=== PATIENT | female | born 1995 | race Caucasian/White ===

== ENCOUNTER 2020-07-27 19:12 | Emergency (ER) | payer BC, OTHER ==
[~2020-07-27] VITALS: Ht 157.5 cm; Wt 62.0 kg
[2020-07-27 19:20] VITALS: BP 130/88
--- NOTE | 2020-07-27 19:59 | NUR ---
CC OF VB STARTING TODAY AND ABD X 5 DAYS. PT RECENTLY SEEN AT [facility] AND WAS TOLD SHE HAS OVARIAN CYST ON RIGHT SIDE. PT STATES SHE ENDED HER PERIOD LAST WEEK AND THIS BLEEDING IS "HEAVIER THEN THAT". DENIES ABD SURGERIES. SO AT BEDSIDE
[2020-07-27 20:20] LABS: BASOPHILS % (AUTO) 1 % (0-1); EOSINOPHILS % (AUTO) 2 % (1-7); LYMPHOCYTES % (AUTO) 20 % (22-44); MEAN CORPUSCULAR HEMOGLOBIN 22.2 pg (27.0-34.8); MEAN CORPUSCULAR HGB CONC 31.6 g/dL (32.4-35.8); MEAN PLATELET VOLUME 8.1 fL (7.4-10.4); MONOCYTES % (AUTO) 8 % (2-9); NEUTROPHILS % (AUTO) 69 % (42-75); PLATELET COUNT 351 x10^3/uL (130-400); RED BLOOD COUNT 4.21 x10^6/uL (3.82-5.3)
[2020-07-27] MEDS ORDERED: MORPHINE SULFATE 4 MG/ML, 1ML ONE (20:20)
[2020-07-27 20:21] LABS: MD NO
--- NOTE | 2020-07-27 20:25 | NUR ---
PT TO US
[2020-07-27] MEDS ORDERED: SODIUM CHLORIDE FLUSH 10ML SYR IVF ONE (20:30)
[2020-07-27] MEDS ORDERED: MORPHINE SULFATE 4 MG/ML, 1ML IVPush PRN ×2 (20:30)
[2020-07-27 20:32] LABS: ALANINE AMINOTRANSFERASE 14 U/L (12-78); ALBUMIN 3.6 g/dL (3.4-5.0); ANION GAP 4 mmol/L (5-15); CALCIUM 8.2 mg/dL (8.5-10.1); CHLORIDE 108 mmol/L (98-107); CREATININE 0.62 mg/dL (0.55-1.02)
[2020-07-27 20:37] LABS: ALKALINE PHOSPHATASE 51 U/L (45-117); BILIRUBIN,TOTAL 0.2 mg/dL (0.2-1.0)
[2020-07-27 20:42] LABS: MICROSCOPIC INDICATED
--- NOTE | 2020-07-27 21:12 | NUR ---
TASK RN: ALL RESULTS ARE BACK AT THIS TIME. CHART UP FOR RECHECK.
== END 2020-07-27 22:42 | disposition home or self-care (01) ==
LOC: ED 22:41
DX: N83.291 Other ovarian cyst, right side (principal); N93.8 Other specified abnormal uterine and vaginal bleeding; N92.1 Excessive and frequent menstruation with irregular cycle
CPT/HCPCS: 36415; 76830; 80053; 81001; 84703; 85025; 87086; 96374; 99284; J2270

== ENCOUNTER 2020-08-03 12:13 | Emergency (ER) | payer BC, OTHER ==
[~2020-08-03] VITALS: Ht 157.5 cm; Wt 61.4 kg
[2020-08-03] VITALS (7 sets, daily range): BP systolic 96–112; BP diastolic 45–66
[2020-08-03 12:53] LABS: BASOPHILS % (AUTO) 1 % (0-1); EOSINOPHILS % (AUTO) 1 % (1-7); LYMPHOCYTES % (AUTO) 10 % (22-44); MEAN CORPUSCULAR HGB CONC 31.7 g/dL (32.4-35.8); MEAN PLATELET VOLUME 8.2 fL (7.4-10.4); MONOCYTES % (AUTO) 7 % (2-9); NEUTROPHILS % (AUTO) 81 % (42-75); PLATELET COUNT 401 x10^3/uL (130-400); RED BLOOD COUNT 3.58 x10^6/uL (3.82-5.3); RED CELL DISTRIBUTION WIDTH 17.1 % (9.6-15.2)
[2020-08-03 13:05] LABS: ALBUMIN 3.1 g/dL (3.4-5.0); ANION GAP 6 mmol/L (5-15); CALCIUM 8.2 mg/dL (8.5-10.1); CHLORIDE 104 mmol/L (98-107)
[2020-08-03 13:11] LABS: ALANINE AMINOTRANSFERASE 13 U/L (12-78); ALKALINE PHOSPHATASE 62 U/L (45-117); BILIRUBIN,TOTAL 0.3 mg/dL (0.2-1.0); CREATININE 0.52 mg/dL (0.55-1.02); TOTAL PROTEIN 7.1 g/dL (6.4-8.2)
--- NOTE | 2020-08-03 16:34 | NUR ---
patient to room 33
--- NOTE | 2020-08-03 17:04 | NUR ---
MEDICAL STUDENT BEDSIDE
[2020-08-03] MEDS ORDERED: SODIUM CHLORIDE 0.9% 1,000ML IVBOLUS ONE (18:00)
[2020-08-03] MEDS ORDERED: ONDANSETRON 2MG/ML, 2ML IVPush ONE (18:00)
[2020-08-03] MEDS ORDERED: KETOROLAC 30 MG/1 ML IVPush ONE (18:00)
[2020-08-03] MEDS ORDERED: SODIUM CHLORIDE FLUSH 10ML SYR IVF ONE (18:00)
--- NOTE | 2020-08-03 18:14 | NUR ---
JOHANN ASSIST PELVIC EXAM WITH DR. BERNARD, PT TOLERATED WELL
[2020-08-03 18:43] LABS: CLUE CELLS NONE SEEN (NONE SEEN); WET PREP WBCS FEW (FEW)
[2020-08-03] MEDS ORDERED: MORPHINE SULFATE 4 MG/ML, 1ML ONE ×2 (18:50→22:13)
[2020-08-03] MEDS ORDERED: ONDANSETRON 2MG/ML, 2ML ONE (18:50)
[2020-08-03] MEDS ORDERED: KETOROLAC 30 MG/1 ML ONE (18:50)
[2020-08-03] MEDS: MORPHINE SULFATE 4 MG/ML, 1ML IVPush PRN ×2 (18:53→22:14)
--- NOTE | 2020-08-03 20:05 | NUR ---
task RN: attempted to obtain consent for blood transfusion on behalf of primary RN Annika. pt reports that she would like to speak to he doctor regading her blood transfusion prior to signing consent. pt reports that she has her own donor that she would like uilized and that she is not comfortable recieving a blood transfusion with anonymous donor blood. pt up to BR without dificuly. SO at bedside Dr. Patel notified
--- NOTE | 2020-08-03 20:45 | NUR ---
task RN: Dr. Patel has been to bedside for pt educaiton. pt now agrees to consent to transfusion. per Ok for pt to eat. report to primary RN Annika
--- NOTE | 2020-08-03 21:58 | NUR ---
task RN: blood slip sent to blood bank
--- NOTE | 2020-08-03 23:55 | NUR ---
PT C/O NAUSEA. MESSAGE LEFT FOR MD.
[2020-08-04] MEDS ORDERED: ONDANSETRON 2MG/ML, 2ML IVPush ONE
[2020-08-04] MEDS ORDERED: ONDANSETRON 2MG/ML, 2ML ONE (00:12)
[2020-08-04 00:20] VITALS: BP 115/55
[2020-08-04 00:53] VITALS: BP 110/64
--- NOTE | 2020-08-04 01:04 | NUR ---
PT REC'VD DISCHARGE EDUCATION AND INSTRUCTIONS. PT AND SPOUSE HAD NO FURTHER QUESTIONS. PT AMBULATED TO DC AREA, STEADY GAIT.
== END 2020-08-04 01:08 | disposition home or self-care (01) ==
LOC: ED 13:22
DX: N83.291 Other ovarian cyst, right side (principal); N93.8 Other specified abnormal uterine and vaginal bleeding; D62 Acute posthemorrhagic anemia; R42 Dizziness and giddiness
CPT/HCPCS: 36415; 36430; 76830; 80053; 84703; 85025; 86850; 86900; 86923; 87210; 87491; 87591; 87808; 96361; 96374; 96375; 96376; 99285; J1885; J2270; J2405; J7030; P9016